=== PATIENT | female | born 1965 | race Caucasian/White ===

== ENCOUNTER 2021-07-22 10:27 | Emergency (ER) | payer MEDICAID ==
[~2021-07-22] VITALS: Ht 175.3 cm; Wt 83.0 kg
[2021-07-22 11:11] VITALS: BP 126/75
[2021-07-22 11:57] LABS: EOSINOPHILS # (AUTO) 0.3 X10'3 (0-0.9); EOSINOPHILS % (AUTO) 3.4 % (0-6); HEMOGLOBIN 14.8 g/dl (12.0-16.0); LYMPHOCYTES # (AUTO) 1.6 X10'3 (1.1-4.8)
[2021-07-22 11:59] LABS: BASOPHILS # (AUTO) 0.1 X10'3 (0-0.2); HEMATOCRIT 44.9 % (35.0-45.0); LYMPHOCYTES % (AUTO) 21.7 % (21-51); MEAN CORPUSCULAR HEMOGLOBIN 31.9 PG (27.0-31.0); MEAN CORPUSCULAR HGB CONC 33.1 g/dL (33.0-36.5); MEAN CORPUSCULAR VOLUME 96.5 FL (78-98); MEAN PLATELET VOLUME 8.6 FL (7.4-10.4); NEUTROPHILS # (AUTO) 4.5 X10'3 (1.8-7.7); NEUTROPHILS % (AUTO) 60.9 % (42-75); PLATELET COUNT 304 X10'3 (140-440); RED BLOOD COUNT 4.65 X10'6 (4.20-5.60); RED CELL DISTRIBUTION WIDTH 14.3 % (11.5-14.5); WHITE BLOOD COUNT 7.4 X10'3 (4.5-11.0)
[2021-07-22 12:14] LABS: ALANINE AMINOTRANSFERASE 25 U/L (12-78); ALBUMIN 3.8 G/DL (3.4-5.0); ALKALINE PHOSPHATASE 73 IU/L (46-116); ANION GAP 9 (8-16); ASPARTATE AMINO TRANSFERASE 21 U/L (10-37); BILIRUBIN,TOTAL 0.3 MG/DL (0.1-1.0); BLOOD UREA NITROGEN 9 MG/DL (7-18); BUN/CREATININE RATIO 11.8 (6.6-38.0); CALCIUM 9.1 MG/DL (8.5-10.1); CHLORIDE 105 MMOL/L (99-107); CREATININE 0.76 MG/DL (0.40-0.90); GLUCOSE 85 MG/DL (70-104); LIPASE 69 U/L (73-393); POTASSIUM 4.4 MMOL/L (3.5-5.1); SODIUM 140 MMOL/L (135-145); TOTAL CARBON DIOXIDE 25.6 MMOL/L (24-32); TOTAL PROTEIN 7.5 G/DL (6.4-8.2); eGFR 79 ML/MIN
[2021-07-22] MEDS ORDERED: iohexol 300mg/ml 100ml inj. ONE (14:47)
[2021-07-22] MEDS ORDERED: CIPR-202 PO (15:43)
[2021-07-22] MEDS ORDERED: METR-159 PO (15:43)
== END 2021-07-22 16:03 | disposition home or self-care (01) ==
LOC: ER 10:28
DX: K52.9 Noninfective gastroenteritis and colitis, unspecified (principal); R10.31 Right lower quadrant pain; F41.9 Anxiety disorder, unspecified; F32.9 Major depressive disorder, single episode, unspecified; F17.200 Nicotine dependence, unspecified, uncomplicated; Z90.49 Acquired absence of other specified parts of digestive tract; Z98.890 Other specified postprocedural states; Z79.2 Long term (current) use of antibiotics
CPT/HCPCS: 36415; 74177; 80053; 83690; 85025; 99285; Q9967

== ENCOUNTER 2023-06-04 08:50 | Emergency (ER) | payer MEDICAID ==
[~2023-06-04] VITALS: Ht 175.3 cm; Wt 75.4 kg
[2023-06-04] MEDS ORDERED: acetaminophen 325mg tablet PO ONE (09:30)
[2023-06-04 10:14] LABS: BASOPHILS # (AUTO) 0.1 X10'3 (0-0.2); EOSINOPHILS # (AUTO) 0.4 X10'3 (0-0.9); EOSINOPHILS % (AUTO) 7.3 % (0-6); HEMATOCRIT 39.9 % (35.0-45.0); HEMOGLOBIN 13.3 g/dl (12.0-16.0); LYMPHOCYTES # (AUTO) 1.6 X10'3 (1.1-4.8); LYMPHOCYTES % (AUTO) 29.8 % (21-51); MEAN CORPUSCULAR HEMOGLOBIN 31.8 PG (27.0-31.0); MEAN CORPUSCULAR HGB CONC 33.3 g/dL (33.0-36.5); MEAN CORPUSCULAR VOLUME 95.5 FL (78-98); MEAN PLATELET VOLUME 9.2 FL (7.4-10.4); MONOCYTES # (AUTO) 0.6 X10'3 (0-0.9); MONOCYTES % (AUTO) 11.8 % (2-12); NEUTROPHILS # (AUTO) 2.7 X10'3 (1.8-7.7); NEUTROPHILS % (AUTO) 50.1 % (42-75); PLATELET COUNT 245 X10'3 (140-440); RED BLOOD COUNT 4.17 X10'6 (4.20-5.60); RED CELL DISTRIBUTION WIDTH 13.8 % (11.5-14.5); WHITE BLOOD COUNT 5.4 X10'3 (4.5-11.0)
[2023-06-04 10:24] LABS: D-DIMER 0.22 MG/L FEU (0-0.50)
[2023-06-04 10:35] LABS: ALANINE AMINOTRANSFERASE 41 U/L (12-78); ALBUMIN 3.3 G/DL (3.4-5.0); ALKALINE PHOSPHATASE 75 IU/L (46-116); ANION GAP 6 (8-16); ASPARTATE AMINO TRANSFERASE 52 U/L (10-37); BILIRUBIN,TOTAL 0.3 MG/DL (0.1-1.0); BLOOD UREA NITROGEN 21 MG/DL (7-18); BUN/CREATININE RATIO 28.4 (10.0-20.0); CHLORIDE 108 MMOL/L (99-107); CREATININE 0.74 MG/DL (0.40-0.90); GLUCOSE 82 MG/DL (70-104); POTASSIUM 4.4 MMOL/L (3.5-5.1); SODIUM 141 MMOL/L (135-145); TOTAL CARBON DIOXIDE 27.1 MMOL/L (24-32); TOTAL PROTEIN 6.6 G/DL (6.4-8.2); eCRCL 89 ML/MIN; eGFR 81 ML/MIN
[2023-06-04] MEDS ORDERED: METH-797 PO (11:04)
[2023-06-04 12:12] VITALS: BP 118/55; PULSE 53; RESP 16; TEMP 98.5; O2SAT 96
== END 2023-06-04 12:21 | disposition home or self-care (01) ==
LOC: ER 08:51
DX: R25.2 Cramp and spasm (principal); Z88.8 Allergy status to other drugs, medicaments and biological substances; Z90.49 Acquired absence of other specified parts of digestive tract
CPT/HCPCS: 36415; 80053; 84484; 85025; 85379; 99284

== ENCOUNTER 2024-06-23 10:23 | Emergency (ER) | payer MEDICAID ==
[~2024-06-23] VITALS: Ht 175.3 cm; Wt 76.3 kg
[~2024-06-23 10:23] MED LIST: METH-797 PO
[2024-06-23 10:33] VITALS: TEMP 98
[2024-06-23 12:18] LABS: BASOPHILS % (AUTO) 0.6 % (0-1); EOSINOPHILS # (AUTO) 0.1 X10'3 (0-0.9); EOSINOPHILS % (AUTO) 1.9 % (0-6); HEMATOCRIT 48.8 % (35.0-45.0); HEMOGLOBIN 16.4 g/dl (12.0-16.0); LYMPHOCYTES # (AUTO) 1.7 X10'3 (1.1-4.8); LYMPHOCYTES % (AUTO) 22.7 % (21-51); MEAN CORPUSCULAR HEMOGLOBIN 32.3 PG (27.0-31.0); MEAN CORPUSCULAR HGB CONC 33.6 g/dL (33.0-36.5); MEAN CORPUSCULAR VOLUME 96.3 FL (78-98); MEAN PLATELET VOLUME 8.8 FL (7.4-10.4); MONOCYTES # (AUTO) 0.7 X10'3 (0-0.9); MONOCYTES % (AUTO) 9.7 % (2-12); NEUTROPHILS % (AUTO) 65.1 % (42-75); PLATELET COUNT 313 X10'3 (140-440); RED BLOOD COUNT 5.07 X10'6 (4.20-5.60); RED CELL DISTRIBUTION WIDTH 13.4 % (11.5-14.5); WHITE BLOOD COUNT 7.6 X10'3 (4.5-11.0)
[2024-06-23] MEDS: ondansetron 4mg rapidly disintigrating tab PO ONE (12:31)
[2024-06-23 12:33] LABS: ALANINE AMINOTRANSFERASE 26 U/L (12-78); ALBUMIN/GLOBULIN RATIO 0.9 (1.1-1.5); ALKALINE PHOSPHATASE 95 IU/L (46-116); ANION GAP 13 (8-16); ASPARTATE AMINO TRANSFERASE 20 U/L (10-37); BILIRUBIN,TOTAL 0.5 MG/DL (0.1-1.0); BLOOD UREA NITROGEN 14 MG/DL (7-18); CALCIUM 9.6 MG/DL (8.5-10.1); CHLORIDE 103 MMOL/L (99-107); GLUCOSE 85 MG/DL (70-104); LIPASE 77 U/L (16-77); SODIUM 139 MMOL/L (135-145); TOTAL CARBON DIOXIDE 23.5 MMOL/L (24-32); TOTAL PROTEIN 8.6 G/DL (6.4-8.2); eCRCL 93 ML/MIN; eGFR 86 ML/MIN
[2024-06-23] MEDS ORDERED: iohexol 300mg/ml 100ml inj. ONE (12:40)
[2024-06-23] MEDS: normal saline 1000ML IV soln IVB ONE (13:08)
[2024-06-23 13:24] LABS: BILIRUBIN,URINE NEGATIVE (Neg); CLARITY,URINE CLEAR (Clear); COLOR,URINE YELLOW (Yellow); GLUCOSE, URINE NEGATIVE (Neg); KETONES,URINE NEGATIVE (Neg); LEUKOCYTE ESTERASE ,URINE NEGATIVE (Neg); NITRITES, URINE NEGATIVE (Neg); OCCULT BLOOD,URINE TRACE-INTACT (Neg); PH,URINE 5.5 (4.8-8.0); PROTEIN,URINE NEGATIVE (Neg); UROBILINOGEN,URINE 0.2 E.U/dL (0.2-1.0)
[2024-06-23 13:25] LABS: UA COLLECTION TYPE CLN CATCH MIDSTREAM
[2024-06-23 13:29] LABS: SQUAMOUS EPITHELIAL CELL,UR MANY /LPF (FEW)
[2024-06-23 13:30] LABS: BACTERIA,URINE NONE SEEN /HPF (Neg); WBC,URINE 0-4 /HPF (0-4)
[2024-06-23] MEDS ORDERED: ONDA-243 PO (13:32)
[2024-06-23] MEDS ORDERED: CIPR-202 PO (13:32)
[2024-06-23] MEDS: dexamethasone sod phosphate 10mg/ml inj IV STA (14:50)
[2024-06-23 15:08] VITALS: BP 136/77; PULSE 68; RESP 18; O2SAT 98
== END 2024-06-23 15:10 | disposition home or self-care (01) ==
LOC: ER 10:23
DX: R11.0 Nausea (principal); K59.00 Constipation, unspecified; F32.A Depression, unspecified; F41.9 Anxiety disorder, unspecified; Z79.899 Other long term (current) drug therapy; Z90.49 Acquired absence of other specified parts of digestive tract
CPT/HCPCS: 36415; 74177; 80053; 81001; 83690; 85025; 96361; 96374; 99285; J1100; J7030; Q9967; 96360

== ENCOUNTER 2025-02-11 08:31 | Emergency (ER) | payer MEDICAID ==
[~2025-02-11] VITALS: Ht 175.3 cm; Wt 77.7 kg
[~2025-02-11 08:31] MED LIST changes: +ONDA-243 PO
[2025-02-11 08:34] VITALS: TEMP 98.3
--- NOTE | 2025-02-11 09:06 | RADIOLOGY REPORT ---
CHEST RADIOGRAPH Indication: EPIGASTRIC PAIN Technique: Single frontal view of the chest was obtained COMPARISON: None FINDINGS: Lines and Tubes: None Lungs: Clear Pleura: No effusion. No pneumothorax. Cardiomediastinal contours: Unremarkable Bones: Unremarkable IMPRESSION: No acute disease.
--- NOTE | 2025-02-11 09:08 | ELECTROCARDIOGRAPH REPORT ---
[facility] Test Date: 2025-02-11 Test Time: 09:06:47 Pat Name: ROMAN LAZARO Department: [facility]- Patient ID: [facility]-[id number] Room: Gender: F Manager Programming: : [id number] Requested By: SHAYNE SAINZ Order Number: [id number] Reading MD: Measurements Intervals [place] Rate: 54 P: 76 TX: 142 QRS: 65 QRSD: 95 T: 71 QT: 399 QTc: 379 Interpretive Statements Sinus bradycardia Please click the below link to view image of tracing.
[2025-02-11 09:13] LABS: MEAN PLATELET VOLUME 9.0 FL (7.4-10.4); RED CELL DISTRIBUTION WIDTH 13.7 % (11.5-14.5)
--- NOTE | 2025-02-11 09:14 | Physician Documentation ---
History of Present Illness Chief Complaint: Abdominal Pain Stated Complaint: UPPER ABD PAIN Time Seen by MD: 09:03 Mode of Arrival: Ambulatory HPI This is a pleasant 60-year-old female who comes in for evaluation of the epigastric/substernal chest pain radiating down her mid abdomen and mid lung that began sometime last night without any obvious trigger, trauma provocation. 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 The particular palliating or aggravating factors were elicited with the patient. She tells me it is either my pleurisy or hiatal hernia . Treat it with Tylenol with a good improvement. Denies any shortness a breath. Denies any nausea, vomiting or diarrhea. Denies any concerns for tobacco, alcohol or illicit substances use Medication Reconciliation Allergies: Coded Allergies: codeine (Unverified Allergy, Unknown, 02/11/25) Uncoded Allergies: OPIATES (Allergy, Intermediate, NAUSEA/FLUSHING, 06/04/23) Scheduled Methocarbamol (Methocarbamol), 1 TAB PO Q8H Scheduled PRN ONDANSETRON ODT 4mg tablet (Ondansetron Odt), 1 TABLET PO Q6H PRN for nausea/vomiting Past Medical History Past Medical History: Constipation, Diverticulitis, Diverticulosis, Inflammatory Bowel Dz, Anxiety, Depression Past Surgical History: cholecystectomy, other Alcohol Use: None Drug Use: none Lives with: S/O Lives In: Home Review of Systems ROS 10 point review of systems was performed and unless noted above in HPI is negative for acute process/complaint. Physical Exam Vital Signs: Temperature: 98.3, Source: Temporal, Heart Rate: 58, Respiratory Rate: 18, BP: 154/95, Pulse Oximetry: 99, Weight: 77.730 Oxygen Flow Rate: 0 Physical Exam GENERAL: Awake, alert, oriented, GCS 15, no apparent distress, non-toxic appearing, answers questions, follows commands appropriately. Examined in bed 9. HEENT: Atraumatic, normocephalic, pupils equal, extraocular muscles intact, sclerae anicteric, mucus membranes moist, oropharynx is clear, no stridor. NECK: supple, full active range of motion, trachea midline, no thyromegaly, no lymphadenopathy, no JVD. CARDIOVASCULAR: regular rate/rhythm, no murmurs/gallops/rubs, Pulses are 2+ in all extremities and symmetric. Capillary refill less than 2 seconds. PULMONARY: Nonlabored, good air movement ,no respiratory distress, speaking in full sentences, clear to auscultation bilaterally, no wheezing, no ronchi, no rales, no accessory muscle use. GASTROINTESTINAL: Soft, epigastric tenderness to palpation reproducing chief co mplaint without guarding or rebound, non-distended, normal active bowel sounds, no organomegaly, no pulsatile masses, no CVA tenderness. NEUROLOGIC: Lucid with normal mental status. Normal facial symmetry. Moves all extremities symmetrically and with purpose. No truncal ataxia. Speech is fluid without evidence of dysarthria or aphasia, no focal deficits appreciated. MUSCULOSKELETAL: There is full range of motion of all extremities. There is no joint pain or joint swelling or joint erythema. There is no muscle pain or tenderness or swelling. EXTREMITIES: warm, well-perfused, no cyanosis, no clubbing, no edema, no acute deformities. Skin: warm, dry, no rashes or lesions, no jaundice, no petechiae orpurpura. No ecchymosis. PSYCHIATRIC: Normal affect, normal insight, normal concentration. Focused exam: [] Progress Results/Orders Results/Orders Orders - SHAYNE SAINZ DO Urinalysis, Cult If Indicated (02/11/25 08:39) Cbc/Diff (02/11/25 08:39) Lipase (02/11/25 08:39) CMP (02/11/25 08:39) Chest,Single View (02/11/25 08:39) Completed Orders - SHAYNE SAINZ DO Electrocardiogram (02/11/25 08:39) Chest,Single View (02/11/25 08:39) Vital Signs 02/11/25 02/11/25 02/11/25 08:34 09:01 09:06 Temp 98.3 Pulse 69 58 Resp 18 B/P (MAP) 112/89 154/95 (114) Pulse Ox 97 99 O2 Flow Rate 0 Laboratory Tests Test 02/11/25 08:59 CBC Comment Chemistry Comments EKG/XRAY/CT/US/VASC/MRI EKG : Additional Comment EKG was obtained and interpreted by myself shows sinus bradycardia, rate of 54, normal MN interval, narrow QRS, no QT prolongation, normal axis, no STEMI. Medical Decision Making Findings Facility Status: ED Holds, RME process The plan was discussed with the patient, who demonstrates clear understanding of the plan and is in agreement with the plan unless otherwise noted in the chart. All questions have been answered, all concerns were addressed unless otherwise documented. I was available throughout their ED stay for frequent reassessment and questions. Differential Diagnoses (considered and possible or likely): [Differential diagnosis considered includes chest wall pain, pleurisy, pneumonia, pulmonary embolus, GERD, esophagitis, gastritis, anxiety, stress reaction, costochondritis, acute coronary syndrome, aortic dissection, pericarditis, myocarditis, or pneumothorax, as well as a acute appendicitis, acute cholecystitis, pancreatitis, gastritis, PUD, diverticulitis, mesenteric ischemia, abdominal aortic aneurysm, bowel obstruction, enteritis, colitis, fecal impaction, volvulus, IBS, inflammatory bowel disease, specific food intolerance, peritonitis, perforated viscous, malignancy, UTI, abscess, and abdominal pain NOS. Pelvic source of pain was also considered including endometritis, dysmenorrhea, ovarian cyst, ovarian torsion, PID, TOA, cervicitis, vaginitis, or uterine fibroid. History, physical exam, and workup exclude many of the more serious causes listed above. ] ??Differential Diagnoses (considered and unlikely, not requiring evaluation currently): [See above] MDM Data Please see [facility] for the following: Independent Historians and external Records Review. Historian: [Patient] Independent Historians: , record review Medication Management: [Reviewed medication list] Social History and determinants: [Reviewed] Please see the body of the note for the following: Any independent interpretations of ECG, imaging studies. All vitals signs/haemodynamics, ordered tests were independently reviewed and interpreted by myself. Nursing triage complaint and vitals reviewed, additional nursing notes were reviewed as available and I agree unless otherwise noted or documented in contradiction in the chart Vital Signs: Independently reviewed Labs: Independently interpreted Imaging: Independently interpreted Old Medical Records: Independently reviewed, see [facility] for relevant summary and i nformation Pulse Oximetry: [97%] interpreted as [normal on room air] by me [Neck Skewer: [Regular Rate, Regular rhythm, no ectopy, NSR] reviewed and interpreted by me] Additionally notably showing: [Hemodynamics reviewed. The patient is not febrile, not tachycardic, no evidence of hypotension respiratory distress. Laboratory studies showed normal CBC. Chemistry was obtained showing transaminitis in alcoholic pattern. Mildly elevated lipase concerning for mild pancreatitis. UA initial troponin is negative. Chest x-ray was obtained showing no acute cardiopulmonary disease. CT of the abdomen and pelvis with a angiography evaluation for potential aortic disease was obtained showing no evidence of aortic aneurysm, dissection or intramural hematoma. Stable intrahepatic and extrahepatic biliary dilatation. Same for pancreatic duct.] Tests considered but not ordered include: [MRCP can be done on an outpatient basis given chronicity of findings] Social Determinants of Health Impact: Patient was evaluated in [facility], or [facility] [place] access to healthcare due to below par ratio of patient to medical providers. [] Comorbid Conditions Impacting Present Evaluation and Care/Treatment: [History of chronic pancreatitis, patient is on Creon] Management Discussions with other Healthcare Providers: [] Treatment and Disposition Medication Management (Given or considered): [Pain management]. See EMR for details Consideration for Hospitalization/Escalation/Deescalation of Care: Admission for observation has been considered, [however the patient is able to tolerate p.o., their symptoms are controlled, they are able to rely on oral medications, and their chief complaint/diagnosis can be managed on outpatient basis.] ?ED Course:?[No clinical deterioration. Upon discussion with the patient, she does have known history of chronic pancreatitis. She actually already had MRI done on her abdomen to evaluate for dilated ducts.] ?Shared decision making:?[Patient is hemodynamically stable for discharge home with follow with their primary care provider. [ ] Specific and cautious return precautions provided and discussed with full understanding. Any incidental findings were also discussed and follow up recommendations given. [] All questions answered. Patient/family were able to verbalize back return precautions. Patient/family agree to plan. Copies of imaging and laboratory studies were provided.] Code status:?FULL Please see the full Electronic Medical Record for full details of nursing documentation, medications list, other records of complete past medical history and conditions, vital signs, laboratory studies, and any radiologic study interpretations by radiologists. Portions of this note were completed using [email or web address] dictation software and as a result there may exist minor errors in spelling. I have reviewed elements of past family and social history and agree as included in note. Heart Score: Heart Score Response (Comments) Value History Slightly Suspicious 0 EKG Normal 0 Age 45-64 1 Risk Factors 1 or 2 risk factors 1 Troponin Normal limit 0 Total 2 Departure Disposition: 01 HOME / SELF CARE / HOMELESS Impression: Primary Impression: Acute pancreatitis Condition: Improved Discharge Instructions: Acute Pancreatitis Referrals: NO PRIMARY CARE PROVIDER (PCP) Prescriptions Hydrocodone Bit/Acetaminophen 5/325 MG (Ay[place] 5/325 MG) 5 Mg/325 Mg Tablet 1 TAB PO Q6H PRN for pain, #14 TAB Prov: SHAYNE SAINZ DO 02/11/25 ONDANSETRON ODT 4mg tablet (ONDANSETRON ODT) 4 Mg Tab.rapdis 1 TAB PO Q6H PRN PRN for nausea/vomiting for 4 Days, #16 TAB 0 Refills Prov: SHAYNE SAINZ DO 02/11/25 Education Educated: Patient, Family Educated regarding: diagnosis, treatment, prognosis, need for follow up Signature Scribe Signature: No scribe Attestation: This note accurately reflects clinical decisions, work performed by myself, DO EMELI Martínez NICHOLAS M DO Feb 11, 2025 09:14
[2025-02-11 09:26] LABS: CREATININE 0.70 MG/DL (0.40-0.90); TOTAL CARBON DIOXIDE 24.5 MMOL/L (24-32); eCRCL 92 ML/MIN; eGFR 86 ML/MIN
--- NOTE | 2025-02-11 10:52 | RADIOLOGY REPORT ---
History: lower substernal chest pain radiating down lower abd Comparison: CT CT ABDOMEN PELVIS on DOS: 06/23/24, CT CT ABDOMEN PELVIS on DOS: 12/12/23, CT ABDOMEN PE LVIS on DOS: 07/22/21 TECHNIQUE: Volumetric data acquisition of chest, abdomen and pelvis was obtained following intravenou s administration of 100 ml omni 350 contrast without any reported adverse effects. Arterial phase brett ging was performed. Axial images were obtained and additional sagittal and coronal images were reform atted. 3D/MIP images were performed and reviewed for reporting. Radiation dose Information: CT Dose: CTDI volume is 20 mGy. Dose-length product is 1419 mGy*cm Findings: Vascular: Aortic measurements: Sinus of valsalva 30 mm, ST junction 25 mm, ascending aorta 31 mm, d escending aorta 23 mm, aortic hiatus 21 mm, suprarenal abdominal aorta 20 mm and infrarenal aorta 16 mm. There is normal caliber of thoracic and abdominal aorta without evidence of aortic dissection, intram ural hematoma or aneurysm. Visualized supra-aortic arteries are patent without a focal stenosis or a neurysm. The celiac, superior mesenteric, bilateral renal, iliac and femoral arteries are patent wit hout any focal stenosis or aneurysm. Chest: Pulmonary Arteries: There are no filling defects within main pulmonary arteries. There is norm al dimensional of main PA. Lungs: There is no peripheral pulmonary infarction, consolidation, pleural effusion, or right heart s train. There is no pneumothorax or pneumomediastinum. Lymph Nodes: There is no significant intrathoracic or axillary lymphadenopathy on CT size criteria. Lower Neck: Visualized portions of the thyroid gland are unremarkable. Mediastinum: Heart size is normal. There is no pericardial effusion. Musculoskeletal: No aggressive focal bony lesions, acute fractures or dislocation. Chest wall: Unremarkable Abdomen and Pelvis: Liver: The liver is normal in size. No focal lesions. Gallbladder and biliary Tree: Gallbladder surgically absent. Intrahepatic and extrahepatic biliary d ilation. Spleen: Unremarkable Pancreas: Dilated pancreatic duct. Adrenal Glands: Unremarkable Kidneys: Kidneys demonstrate normal symmetric enhancement without focal lesions, calculi or hydroneph rosis. Bladder: Unremarkable Bowel: The stomach is grossly normal in appearance. Small bowel and colon are normal in caliber and d istribution. The appendix appears normal. Ascites: Absent Lymphadenopathy: No mesenteric, retroperitoneal or periportal lymphadenopathy. Abdominal wall and Mesentery: Stable cyst right upper quadrant measuring up to 22 mm. Pelvic Organs: Unremarkable Musculoskeletal: Degenerative and postsurgical changes in the spine. IMPRESSION: 1. No evidence of aortic aneurysm, dissection, or intramural hematoma. 2. Intrahepatic and extrahepatic biliary dilation similar to prior. Dilated pancreatic duct similar to prior. Correlate with serum bilirubin. Consider further evaluation with MRI/ MRCP with contrast. S table right upper quadrant cysts measuring up to [address] scans at this medical facility are performed using dose modulation techniques as appropriat e to a performed exam including the following: Automated exposure control was utilized; Adjustment of the MA And/or KV according to patient size; And use of iterative reconstruction technique. HS:Y
[2025-02-11 14:09] LABS: LEUKOCYTE ESTERASE ,URINE NEGATIVE (Neg); NITRITES, URINE NEGATIVE (Neg); OCCULT BLOOD,URINE NEGATIVE (Neg)
[2025-02-11 14:13] LABS: UA COLLECTION TYPE CLN CATCH MIDSTREAM
[2025-02-11] MEDS ORDERED: ONDA-243 PO (14:52)
[2025-02-11] MEDS ORDERED: HYDR-3965 PO (14:52)
[2025-02-11 15:02] VITALS: BP 104/60; PULSE 54; RESP 16; O2SAT 98
== END 2025-02-11 15:07 | disposition home or self-care (01) ==
LOC: ER 08:32
DX: K85.90 Acute pancreatitis without necrosis or infection, unspecified (principal); F41.9 Anxiety disorder, unspecified; F32.A Depression, unspecified; Z88.5 Allergy status to narcotic agent; Z90.49 Acquired absence of other specified parts of digestive tract; Z79.899 Other long term (current) drug therapy
CPT/HCPCS: 36415; 71045; 71275; 74174; 80053; 81003; 83690; 83735; 84484; 85025; 93005; 99285; Q9967